=== PATIENT | male | born 1975 | race American Indian/Alaskan Native ===

== ENCOUNTER 2020-09-07 02:23 | Emergency (ER) | payer OTHER ==
--- NOTE | 2020-09-07 03:35 | XRay Report ---
LUMBAR SPINE 2 VIEWS INDICATION: Trauma COMPARISON: None. FINDINGS: There is no fracture, subluxation, or other acute radiographic abnormality of the lumbar spine. There is mild disc space narrowing at L3-4 with anterior osteophyte formation. Signer Name: Gatito Pimentel MD Signed: 09/07/2020 3:31 AM Workstation Name: [id number]
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
[2020-09-07 07:04] VITALS: BP 115/83
== END 2020-09-07 06:20 | disposition home or self-care (01) ==
LOC: ED 02:23
DX: S39.012A Strain of muscle, fascia and tendon of lower back, initial encounter (principal); Z79.899 Other long term (current) drug therapy; V49.49XA Driver injured in collision with other motor vehicles in traffic accident, initial encounter; Y93.89 Activity, other specified; Y92.410 Unspecified street and highway as the place of occurrence of the external cause; Y99.8 Other external cause status
CPT/HCPCS: 72100